=== PATIENT | female | born 1945 | race Caucasian/White ===

== ENCOUNTER 2018-05-06 14:38 | Emergency (ER) | payer MEDICARE, OTHER ==
[2018-05-06] MEDS ORDERED: SODIUM CHLORIDE 0.9% 1000 ML SOL IV SCH (15:15)
[2018-05-06 16:25] VITALS: BP 105/64; PULSE 71; RESP 16; TEMP 97.2; O2SAT 97
[2018-05-06] MEDS ORDERED: SODIUM CHLORIDE 0.9% FLUSH 10 ML SOL IV PRN (16:27)
== END 2018-05-06 16:40 | disposition home or self-care (01) | DRG 153 ==
LOC: ED 14:38
DX: J06.9 Acute upper respiratory infection, unspecified (principal); R53.1 Weakness; Z79.4 Long term (current) use of insulin; I48.91 Unspecified atrial fibrillation
CPT/HCPCS: 96365; 99282; 99284